=== PATIENT | female | born 1965 ===

== ENCOUNTER 2019-06-08 08:37 | Emergency (ER) | payer OTHER ==
[~2019-06-08] VITALS: Ht 162.6 cm; Wt 76.2 kg
[~2019-06-08 08:37] MED LIST: DOLOGEN CAPLET1 EACH PO
[2019-06-08] MEDS ORDERED: OSEL75CA PO (11:39)
[2019-06-08] MEDS ORDERED: ZITHROMAX500 MG PO (11:39)
== END 2019-06-08 11:47 | disposition home or self-care (01) ==
LOC: ER 08:37
DX: B34.9 Viral infection, unspecified (principal)

== ENCOUNTER 2021-03-23 13:56 | Outpatient (CLI) | payer OTHER ==
[~2021-03-23 13:56] MED LIST changes: +OSEL75CA PO; +ZITHROMAX500 MG PO
== END 2021-03-23 13:57 | disposition home or self-care (01) ==
LOC: NUCLEAR 13:56
PROVIDERS: ATTEND Internal Medicine
DX: M81.0 Age-related osteoporosis without current pathological fracture (principal); M54.5 Low back pain

== ENCOUNTER 2021-03-31 16:49 | Emergency (ER) | payer OTHER ==
[~2021-03-31] VITALS: Ht 157.5 cm; Wt 59.0 kg
[2021-03-31] MEDS ORDERED: DICLOFENAC SODI75 MG PO (19:40)
== END 2021-03-31 21:15 | disposition home or self-care (01) ==
LOC: ER 16:49
DX: M54.2 Cervicalgia (principal)

== ENCOUNTER 2021-05-15 07:20 | Outpatient (CLI) | payer OTHER ==
[~2021-05-15 07:20] MED LIST changes: +DICLOFENAC SODI75 MG PO
== END 2021-05-15 07:35 | disposition home or self-care (01) ==
LOC: MRI 07:20
PROVIDERS: ATTEND Physical Medicine & Rehabilitation
DX: M54.2 Cervicalgia (principal); M54.12 Radiculopathy, cervical region
CPT/HCPCS: 72141